=== PATIENT | female | born 1985 | race Two or more races ===

== ENCOUNTER 2022-01-21 02:46 | Emergency (ER) | payer BC ==
[~2022-01-21] VITALS: Ht 162.6 cm; Wt 68.2 kg
[2022-01-21 02:59] VITALS: BP 115/73
== END 2022-01-21 06:16 | disposition left against medical advice (07) ==
LOC: ER 02:47
DX: H92.02 Otalgia, left ear (principal); Z53.21 Procedure and treatment not carried out due to patient leaving prior to being seen by health care provider